=== PATIENT | male | born 1950 | race American Indian/Alaskan Native ===

== ENCOUNTER 2019-08-01 00:57 | Emergency (ER) | payer BC, OTHER ==
[2019-08-01] MEDS ORDERED: MECLIZINE HCL 12.5 MG TAB ONE (01:23)
[2019-08-01 01:42] LABS: Potassium 4.1 mmol/L (3.5-5.1)
--- NOTE | 2019-08-01 02:43 | ER ---
Nurse's Notes [facility] Name: Scott Ortiz Age: 68 yrs Sex: Male : 1950 Arrival Date: 08/01/2019 Time: 01:04 Bed 6 Private MD: Diagnosis: Vertigo Presentation: 08/01 00:58 Presenting complaint: EMS states: PT reports severe vertigo and is unable to situp or jb4 turn from side to side without falling back to a lying position. 00:58 Transition of care: patient was not received from another setting of care. Onset of jb4 symptoms was August 01, 2019. Risk Assessment: Do you want to hurt yourself or someone else? Patient reports no desire to harm self or others. Initial Sepsis Screen: Does the patient meet any 2 criteria? No. Patient's initial sepsis screen is negative. Does the patient have a suspected source of infection? No. Patient's initial sepsis screen is negative. Care prior to arrival: Glucose check: 171. 00:58 Method Of Arrival: EMS: [facility] jb4 00:58 Acuity: МАРИНА 3 jb4 Historical: - Allergies: 00:58 No Known Allergies; jb4 - Home Meds: 00:58 Benicar oral oral [Active]; Metformin Oral [Active]; insulin [Active]; Crestor 5 mg jb4 oral tab [Active]; amlodipine 5 mg tab [Active]; - PMHx: 00:58 Diabetes - IDDM; Hypertension; High Cholesterol; jb4 - PSHx: 00:58 None; jb4 - Immunization history:: Adult Immunizations up to date. - Social history:: Smoking status: Patient/guardian denies using tobacco. - Ebola Screening: : No symptoms or risks identified at this time. - Hospitalizations: : No recent hospitalization is reported. Screenin:10 Abuse screen: Denies threats or abuse. Denies injuries from another. Nutritional aa1 screening: No deficits noted. Tuberculosis screening: No symptoms or risk factors identified. Fall Risk Gait- Impaired (20 pts.). Assessment: 01:10 General: Appears in no apparent distress. comfortable, Behavior is calm, cooperative, aa1 appropriate for age. Pain: Denies pain. Neuro: Level of Consciousness is awake, alert, obeys commands, Oriented to person, place, time, situation, [place] Tier are equal bilaterally Moves all extremities. Speech is normal, Facial symmetry appears normal, Pupils are PERRLA, Intact Reports dizziness, Denies blurred vision headache diplopia. Cardiovascular: Heart tones S1 S2 present. Respiratory: Airway is patent Respiratory effort is even, unlabored, Respiratory pattern is regular, symmetrical. GI: No signs and/or symptoms were reported involving the gastrointestinal system. : No signs and/or symptoms were reported regarding the genitourinary system. EENT: No signs and/or symptoms were reported regarding the EENT system. Derm: Skin is intact, is healthy with good turgor, Skin is pink, warm \T\ dry. Musculoskeletal: Circulation, motion, and sensation intact. Capillary refill < 3 seconds. 01:38 Reassessment: Pt back from CT. aa1 02:18 Reassessment: Patient appears in no apparent distress at this time. Patient and/or jb4 family updated on plan of care and expected duration. Pain level reassessed. Patient is alert, oriented x 3, equal unlabored respirations, skin warm/dry/pink. Pt reports dizziness is unchanged by medication. Still is unable to sit up. 03:00 Reassessment: Patient appears in no apparent distress at this time. Patient and/or jb4 family updated on plan of care and expected duration. Pain level reassessed. Patient is alert, oriented x 3, equal unlabored respirations, skin warm/dry/pink. Pt and family verbalized understanding of d/c and follow up instructions. Pt assisted to vehicle via wheel chair. Vital Signs: 00:58 BP 135 / 84; Pulse 67; Resp 16; Temp 97.8(O); Pulse Ox 100% on R/A; Weight 65.77 kg jb4 (R); Height 5 ft. 6 in. (167.64 cm) (R); Pain 0/10; 02:15 BP 126 / 84; Pulse 60; Resp 16; Pulse Ox 98% on R/A; jb4 00:58 Body Mass Index 23.40 (65.77 kg, 167.64 cm) 4 ED Course: 00:58 Arm band placed on right wrist. jb4 01:04 Patient arrived in ED. rn 01:04 Jae Villalpando MD is Attending Physician. rn 01:06 Nguyễn Adames RN is Primary Nurse. jb4 01:10 Triage completed. jb4 01:10 Patient has correct armband on for positive identification. Bed in low position. Call aa1 light in reach. Side rails up X2. Pulse ox on. NIBP on. Warm blanket given. 01:20 Initial lab(s) drawn, by me, sent to lab. Inserted saline lock: 20 gauge in right aa1 antecubital area, using aseptic technique. Blood collected. 01:45 CT completed. Patient tolerated procedure well. Patient moved to CT via stretcher. Patient moved back from CT. 01:45 CT Head Brain wo Cont In Process Unspecified. EDMS 02:42 Daniel Pimentel MD is Referral Physician. rn 03:06 No provider procedures requiring assistance completed. IV discontinued, intact, ea bleeding controlled, No redness/swelling at site. Pressure dressing applied. Administered Medications: 01:29 Drug: Meclizine 50 mg Route: PO; aa1 02:00 Follow up: Response: No adverse reaction; Marked relief of symptoms jb4 Outcome: 02:42 Discharge ordered by MD. rn 03:06 Discharged to home via wheelchair, with family. ea 03:06 Condition: stable 03:06 Discharge instructions given to patient, Instructed on discharge instructions, follow up and referral plans. 03:08 Patient left the ED. jb4 Signatures: Dispatcher [employer] EDEnriqueta Beltran, RN RN aa1 Yoni Asher Jae Villalpando MD MD rn Bryson, James, RN RN jb4 Lily Steele RN RN ea
--- NOTE | 2019-08-01 02:43 | EDPHYS ---
Physician Documentation [facility] Name: Scott Ortiz Age: 68 yrs Sex: Male : 1950 Arrival Date: 08/01/2019 Time: 01:04 Bed 6 Private MD: ED Physician Jae Villalpando HPI: 08/01 01:07 This 68 yrs old Other Male presents to ER via Unassigned with complaints of dizziness, rn vertigo. 01:07 The patient presents with vertigo. Onset: The symptoms/episode began/occurred just rn prior to arrival. Modifying factors: The symptoms are alleviated by closing eyes, holding head still, lying down, the symptoms are aggravated by movement of head, changing position. Severity of symptoms: At their worst the symptoms were moderate in the emergency department the symptoms are unchanged. The patient has not experienced similar symptoms in the past. The patient has not recently seen a physician. Reports went to bed at normal time, felt fine, worked without symptoms yesterday. Woke up around 12:30 with severe dizziness with change in position and head movement. Unable to even sit up. Denies nausea/vomiting. No chest pain/abd pain/weakness or numbness of extremities. Asymptomatic if lays down or doesn't move head. . Historical: - Allergies: 00:58 No Known Allergies; jb4 - Home Meds: 00:58 Benicar oral oral [Active]; Metformin Oral [Active]; insulin [Active]; Crestor 5 mg jb4 oral tab [Active]; amlodipine 5 mg tab [Active]; - PMHx: 00:58 Diabetes - IDDM; Hypertension; High Cholesterol; jb4 - PSHx: 00:58 None; jb4 - Immunization history:: Adult Immunizations up to date. - Social history:: Smoking status: Patient/guardian denies using tobacco. - Ebola Screening: : No symptoms or risks identified at this time. - Hospitalizations: : No recent hospitalization is reported. ROS: 01:07 Constitutional: Negative for fever, chills, and weight loss, Eyes: Negative for injury, rn pain, redness, and discharge, ENT: Negative for injury, pain, and discharge, Neck: Negative for injury, pain, and swelling, Cardiovascular: Negative for chest pain, palpitations, and edema, Respiratory: Negative for shortness of breath, cough, wheezing, and pleuritic chest pain, Abdomen/GI: Negative for abdominal pain, nausea, vomiting, diarrhea, and constipation, MS/Extremity: Negative for injury and deformity, Skin: Negative for injury, rash, and discoloration, Neuro: Negative for headache, weakness, numbness, tingling, and seizure. Exam: 01:07 Constitutional: This is a well developed, well nourished patient who is awake, alert, rn and in no acute distress. Laying flat with legs and arms crossed Head/Face: Normocephalic, atraumatic. Eyes: Pupils equal round, extra-ocular motions intact. No nystagmus. ENT: MMM Cardiovascular: Regular rate and rhythm. No pulse deficits. Respiratory: Clear bilateral breath sounds. No increased work of breathing, no retractions or nasal flaring. Abdomen/GI: soft, non-tender MS/ Extremity: Pulses equal, no cyanosis. Neurovascular intact. Full, normal range of motion. Equal circumference. Neuro: Awake and alert, GCS 15, oriented. Cranial nerves grossly intact. Motor strength 5/5 in all extremities. Sensory grossly intact. Cerebellar exam normal. Gait not tested, unable to sit up without falling back. Vital Signs: 00:58 BP 135 / 84; Pulse 67; Resp 16; Temp 97.8(O); Pulse Ox 100% on R/A; Weight 65.77 kg jb4 (R); Height 5 ft. 6 in. (167.64 cm) (R); Pain 0/10; 02:15 BP 126 / 84; Pulse 60; Resp 16; Pulse Ox 98% on R/A; jb4 00:58 Body Mass Index 23.40 (65.77 kg, 167.64 cm) jb4 MDM: 01:04 Patient medically screened. rn 01:23 ED course: Pt states feels ok, just can't sit up. States no need for other tests, and rn that he recently had stress test/cardiac eval and was normal. States is ok with CT head. . 02:39 Differential diagnosis: CVA, generalized weakness, hypovolemia, idiopathic dizziness, rn TIA, vertigo. Data reviewed: vital signs, nurses notes, lab test result(s), radiologic studies, CT scan, and as a result, I will discharge patient. Counseling: I had a detailed discussion with the patient and/or guardian regarding: the historical points, exam findings, and any diagnostic results supporting the discharge/admit diagnosis, lab results, radiology results, the need for outpatient follow up, to return to the emergency department if symptoms worsen or persist or if there are any questions or concerns that arise at home. Response to treatment: the patient's symptoms have mildly improved after treatment, and as a result, I will discharge patient. ED course: Pt able to sit up a little more since arrival. CT head without acute findings. Spoke with him regarding thickening of sinuses, states has bad allergies and denies fever/sinusitis symptoms. I offered different medication to help symptoms i.e. valium and/or fluids, he declines, is convinced has labyrinthitis. Also recommended CTA head/neck. Requests to go home. States only came to get CT head and make sure nothing was wrong inside head. Family seems more concerned but patient insists to them he is ok and wants to go home.. 08/01 01:05 Order name: BMP; Complete Time: 01:45 rn 08/01 01:04 Order name: CT Head Brain wo Cont rn 08/01 01:05 Order name: IV Start; Complete Time: 01:29 rn 08/01 01:25 Order name: Monitor; Complete Time: 01:29 rn Administered Medications: :29 Drug: Meclizine 50 mg Route: PO; aa1 02:00 Follow up: Response: No adverse reaction; Marked relief of symptoms jb4 Disposition: 08/01/19 02:42 Discharged to Home. Impression: Vertigo. - Condition is Stable. - Discharge Instructions: Vertigo. - Medication Reconciliation Form, Thank You Letter, Antibiotic Education, Prescription Opioid Use form. - Follow up: Daniel Pimentel MD; When: As needed; Reason: Recheck today's complaints, Re-evaluation by your physician. - Problem is new. - Symptoms have improved. Signatures: Dispatcher [employer] EDMS Enriqueta Jj RN RN aa1 Jae Villalpando MD MD rn Bryson, James, RN RN jb4 Corrections: (The following items were deleted from the chart) 02:52 02:39 ED course: Pt able to sit up a little more since arrival. CT head without acute rn findings. Spoke with him regarding thickening of sinuses, states has bad allergies and denies fever/sinusitis symptoms. I offered different medication to help symptoms i.e. valium and/or fluids, he declines, is convinced has labyrinthitis. Requests to go home. States only came to get CT head and make sure nothing was wrong inside head. Family seems more concerned but patient insists to them he is ok and wants to go home.. rn 03:08 02:42 08/01/2019 02:42 Discharged to Home. Impression: Vertigo. Condition is Stable. jb4 Forms are Medication Reconciliation Form, Thank You Letter, Antibiotic Education, Prescription Opioid Use. Follow up: Dnaiel Pimentel; When: As needed; Reason: Recheck today's complaints, Re-evaluation by your physician. Problem is new. Symptoms have improved. rn
[2019-08-01 03:35] VITALS: TEMP 97.8
[2019-08-01 03:36] VITALS: BP 126/84; O2SAT 98
--- NOTE | 2019-08-01 11:50 | RAD REPORT ---
EXAM DESCRIPTION: CT - Head Brain Wo Cont - 08/01/2019 2:36 am CLINICAL HISTORY: Vertigo;Dizziness TECHNIQUE: Contiguous axial CT images obtained through the brain without IV contrast. Coronal and sa gittal reformatted images were provided. This exam was performed according to our departmental dose-optimization program, which includes autom ated exposure control, adjustment of the mA and/or kV according to patient size and/or use of iterati ve reconstruction technique. COMPARISON: None available for comparison FINDINGS: Brain: There is mild cerebral atrophy. No significant white matter changes. No focal mass effect. Quigley-white matter differentiation is within normal limits. No hemorrhage. Ventricles: No ventriculomegaly or midline shift. Extra-axial spaces: No extra-axial collection or hemorrhage. Paranasal sinuses and mastoid air cells: Moderate to severe right and minimal left maxillary sinus mu cosal thickening. Vessels: There is minimal atherosclerotic disease of the internal carotid arteries bilaterally. Bones: Unremarkable Soft tissues: Unremarkable IMPRESSION: 1. No acute intracranial or extra-axial abnormality. 2. Other findings as above. Electronically signed by: Gregorio Boyce MD 08/01/2019 2:18 AM [facility] Due to temporary technical issues with the PACS/Fluency reporting system, reports are being signed by the in house radiologist as a courtesy to ensure prompt reporting. The interpreting radiologist is f ully responsible for the content of the report.
== END 2019-08-01 03:08 | disposition home or self-care (01) ==
LOC: ER 00:57
DX: R42 Dizziness and giddiness (principal); I10 Essential (primary) hypertension; E11.9 Type 2 diabetes mellitus without complications; E78.00 Pure hypercholesterolemia, unspecified; Z79.4 Long term (current) use of insulin
CPT/HCPCS: 36415; 70450; 80048; 99284; J8597

== ENCOUNTER 2019-09-21 05:05 | Emergency (ER) | payer OTHER ==
[2019-09-21] MEDS ORDERED: NA CHLORIDE 0.9% 2,000 ML ONE (05:23)
[2019-09-21 05:57] LABS: ALT/SGPT 35 U/L (12-78); AST/SGOT 19 U/L (15-37); Albumin 3.8 g/dL (3.4-5.0); Alkaline Phosphatase 62 U/L (45-117); BUN Blood Urea Nitrogen 23 mg/dL (7-18); Bicarbonate 25 mmol/L (21-32); Bilirubin Total 1.1 mg/dL (0.2-1.0); Glucose Level 236 mg/dL (74-106); Lipase 128 U/L (73-393); Potassium 5.2 mmol/L (3.5-5.1); Protein, Total 7.2 g/dL (6.4-8.2); Sodium Level 139 mmol/L (136-145); Troponin (Emerg Dept Use Only) < 0.02 ng/mL (0.0-0.045)
[2019-09-21 06:08] LABS: Absolute Lymphocytes (CBC) 0.7 K/uL (0.7-4.9); Basophils % 0.1 % (0-1.3); Hematocrit 38.9 % (39.6-49.0); Lymphocytes % 7.1 % (15.3-44.8); MPV 9.3 fL (7.6-11.3); RBC Red Blood Cell Count 4.37 M/uL (4.33-5.43)
[2019-09-21] MEDS ORDERED: CIPROFLOXACIN HCL 250 MG TAB ONE (06:16)
--- NOTE | 2019-09-21 06:52 | ER ---
Nurse's Notes [facility] Name: Scott Ortiz Age: 68 yrs Sex: Male : 1950 Arrival Date: 09/21/2019 Time: 05:08 Bed 7 Private MD: Diagnosis: Diarrhea, unspecified;Weakness;Type 1 diabetes mellitus;Syncope and collapse-near;Unspecified kidney failure-renal insuffiency;Hyperkalemia Presentation: 09/21 05:00 Presenting complaint: EMS states: Pt found on the floor, reported having nausea, ea vomiting and diarrhea for the past 12 hours. EMS reported pt was feeling dizzy while sitting systolic BP was 102 and 101, while standing BP was 88/50. EMS initiated NS, pt received approx 500 mls of NS, through 20 G IV in RAC. Transition of care: patient was not received from another setting of care. Onset of symptoms was September 21, 2019. Risk Assessment: Do you want to hurt yourself or someone else? Patient reports no desire to harm self or others. Initial Sepsis Screen: Does the patient meet any 2 criteria? No. Patient's initial sepsis screen is negative. Does the patient have a suspected source of infection? No. Patient's initial sepsis screen is negative. Care prior to arrival: NS 500 cc, 20 G to RAC. 05:00 Method Of Arrival: EMS: [facility] ea 05:00 Acuity: МАРИНА 3 ea Historical: - Allergies: 05:30 No Known Allergies; ea - Home Meds: 05:30 Metformin Oral [Active]; Crestor 5 mg Oral tab [Active]; amlodipine 5 mg tab [Active]; ea Benicar Oral [Active]; - PMHx: 05:30 Hypertension; High Cholesterol; Diabetes - IDDM; ea - PSHx: 05:30 None; ea - Immunization history:: Adult Immunizations up to date. - Family history:: not pertinent. - Social history:: Smoking status: Patient/guardian denies using tobacco. - Ebola Screening: : Patient denies travel to an Ebola-affected area in the 21 days before illness onset. Screenin:18 Abuse screen: Denies threats or abuse. Nutritional screening: No deficits noted. jd3 Tuberculosis screening: No symptoms or risk factors identified. Fall Risk IV access (20 points). Ambulatory Aid- None/Bed Rest/Nurse Assist (0 pts). Gait- Normal/Bed Rest/Wheelchair (0 pts) Mental Status- Oriented to own ability (0 pts). Total Rajput Fall Scale indicates No Risk (0-24 pts). Assessment: 05:17 General: Appears in no apparent distress. comfortable, Behavior is calm, cooperative, jd3 appropriate for age. Pain: Denies pain. Neuro: Level of Consciousness is awake, alert, obeys commands, Oriented to person, place, time, situation, Denies dizziness. Cardiovascular: Denies chest pain, Capillary refill < 3 seconds Patient's skin is warm and dry. Rhythm is regular. Respiratory: Airway is patent Respiratory effort is even, unlabored, Respiratory pattern is regular, symmetrical, Denies cough, shortness of breath. GI: Abdomen is round non-distended, Bowel sounds present X 4 quads. Abd is soft and non tender X 4 quads. Reports diarrhea. : No signs and/or symptoms were reported regarding the genitourinary system. EENT: No signs and/or symptoms were reported regarding the EENT system. Derm: Skin is intact, Skin is dry, Skin is normal, Skin temperature is warm. Musculoskeletal: Circulation, motion, and sensation intact. Range of motion: intact in all extremities. 06:06 Reassessment: Patient appears in no apparent distress at this time. No changes from jd3 previously documented assessment. Patient and/or family updated on plan of care and expected duration. Pain level reassessed. Patient is alert, oriented x 3, equal unlabored respirations, skin warm/dry/pink. 07:26 Reassessment: Patient appears in no apparent distress at this time. at sg bedside for discharge instructions, pt continuing treatment as ordered prior to DC to home. Vital Signs: 05:00 BP 136 / 79; Pulse 78; Resp 18; Temp 98.5; Pulse Ox 100% ; Weight 68.04 kg; Height 5 ea ft. 3 in. (160.02 cm); 06:06 BP 140 / 78; Pulse 87; Resp 19 S; Pulse Ox 100% on R/A; Pain 0/10; jd3 07:00 BP 122 / 67; Pulse 97; Resp 22; Pulse Ox 100% ; bp 07:18 BP 138 / 77 LA Supine (auto/reg); Pulse 99; Resp 24; Pulse Ox 100% ; ms 07:18 BP 141 / 83 LA Sitting (auto/reg); Pulse 100; Resp 20; Pulse Ox 100% ; ms 07:18 BP 137 / 75 LA Standing (auto/reg); Pulse 100; Resp 20; Pulse Ox 100% ; ms 05:00 Body Mass Index 26.57 (68.04 kg, 160.02 cm) ED Course: 05:00 Patient placed in an exam room, on a stretcher, on pulse oximetry. ea 05:08 Patient arrived in ED. cl3 05:08 Quincy Danielle MD is Attending Physician. srinivas 05:16 Denver Neves, RN is Primary Nurse. jd3 05:18 Patient has correct armband on for positive identification. Placed in gown. Bed in low jd3 position. Call light in reach. Side rails up X 1. Adult w/ patient. 05:27 Triage completed. ea 05:46 Maintain EMS IV. Dressing intact. Good blood return noted. Site clean \T\ dry. Gauge \T\ erin 3 site: 20 G right AC. Administered Medications: 05:29 Drug: NS 0.9% 1000 ml Route: IV; Rate: 1 bolus; Site: right antecubital; jd3 05:29 Drug: NS 0.9% 1000 ml Route: IV; Rate: 1 bolus; Site: right antecubital; jd3 06:33 Drug: Cipro 250 mg Route: PO; jd3 07:13 Follow up: Response: No adverse reaction bp 07:27 Not Given (Other Intervention Used): NS 0.9% 1000 ml IV at 1 bolus Per protocol; 1000 sg mL bolus Outcome: 06:51 Discharge ordered by . srinivas 08:11 Patient left the ED. sg Signatures: Emil Elizabeth RN RN sg Anderson, Corey, MD MD cha Villarreal, Maria ms Lily Steele RN RN ea Davies, Jonathon, RN RN jd3 Peltier, Brian, RN RN bp Lewis, Charde cl3 Corrections: (The following items were deleted from the chart) 06:06 05:17 Neuro: Level of Consciousness is awake, alert, obeys commands, Oriented to jd3 person, place, time, situation, Reports dizziness, jd3
--- NOTE | 2019-09-21 06:53 | EDPHYS ---
Physician Documentation [facility] Name: Scott Ortiz Age: 68 yrs Sex: Male : 1950 Arrival Date: 09/21/2019 Time: 05:08 Bed 7 Private MD: ED Physician Quincy Danielle HPI: 09/21 05:15 This 68 yrs old Other Male presents to ER via Unassigned with complaints of Syncope x 2 srinivas after diarrhea. 05:15 Onset: The symptoms/episode began/occurred just prior to arrival, this morning. srinivas Associated signs and symptoms: Pertinent positives: diarrhea, near syncope. The patient has experienced near-syncope, almost passed out, felt dizzy, felt faint, felt generally weak. Associated injury: The patient did not suffer any apparent associated injury. Historical: - Allergies: 05:30 No Known Allergies; ea - Home Meds: 05:30 Metformin Oral [Active]; Crestor 5 mg Oral tab [Active]; amlodipine 5 mg tab [Active]; ea Benicar Oral [Active]; - PMHx: 05:30 Hypertension; High Cholesterol; Diabetes - IDDM; ea - PSHx: 05:30 None; ea - Immunization history:: Adult Immunizations up to date. - Family history:: not pertinent. - Social history:: Smoking status: Patient/guardian denies using tobacco. - Ebola Screening: : Patient denies travel to an Ebola-affected area in the 21 days before illness onset. ROS: 05:15 Constitutional: Negative for fever, chills, and weight loss, Eyes: Negative for injury, srinivas pain, redness, and discharge, ENT: Negative for injury, pain, and discharge, Neck: Negative for injury, pain, and swelling, Cardiovascular: Negative for chest pain, palpitations, and edema, Respiratory: Negative for shortness of breath, cough, wheezing, and pleuritic chest pain, Back: Negative for injury and pain, : Negative for injury, bleeding, discharge, and swelling, MS/Extremity: Negative for injury and deformity, Skin: Negative for injury, rash, and discoloration, Psych: Negative for depression, anxiety, suicide ideation, homicidal ideation, and hallucinations, Allergy/Immunology: Negative for hives, rash, and allergies, Endocrine: Negative for neck swelling, polydipsia, polyuria, polyphagia, and marked weight changes, Hematologic/Lymphatic: Negative for swollen nodes, abnormal bleeding, and unusual bruising. 05:15 Abdomen/GI: Positive for diarrhea. 05:15 Neuro: Positive for near syncope, weakness. Exam: 05:15 Constitutional: This is a well developed, well nourished patient who is awake, alert, srinivas and in no acute distress. Head/Face: Normocephalic, atraumatic. Eyes: Pupils equal round and reactive to light, extra-ocular motions intact. Lids and lashes normal. Conjunctiva and sclera are non-icteric and not injected. Cornea within normal limits. Periorbital areas with no swelling, redness, or edema. ENT: Nares patent. No nasal discharge, no septal abnormalities noted. Tympanic membranes are normal and external auditory canals are clear. Oropharynx with no redness, swelling, or masses, exudates, or evidence of obstruction, uvula midline. Mucous membranes moist. Neck: Trachea midline, no thyromegaly or masses palpated, and no cervical lymphadenopathy. Supple, full range of motion without nuchal rigidity, or vertebral point tenderness. No Meningismus. Chest/axilla: Normal chest wall appearance and motion. Nontender with no deformity. No lesions are appreciated. Cardiovascular: Regular rate and rhythm with a normal S1 and S2. No gallops, murmurs, or rubs. Normal PMI, no JVD. No pulse deficits. Respiratory: Lungs have equal breath sounds bilaterally, clear to auscultation and percussion. No rales, rhonchi or wheezes noted. No increased work of breathing, no retractions or nasal flaring. Back: No spinal tenderness. No costovertebral tenderness. Full range of motion. Male : Normal genitalia with no discharge or lesions. Skin: Warm, dry with normal turgor. Normal color with no rashes, no lesions, and no evidence of cellulitis. MS/ Extremity: Pulses equal, no cyanosis. Neurovascular intact. Full, normal range of motion. Psych: Awake, alert, with orientation to person, place and time. Behavior, mood, and affect are within normal limits. 05:15 Abdomen/GI: Inspection: abdomen appears normal, Bowel sounds: normal, Palpation: nontender, Liver: no appreciated palpable abnormalities, Hernia: not appreciated. Vital Signs: 05:00 BP 136 / 79; Pulse 78; Resp 18; Temp 98.5; Pulse Ox 100% ; Weight 68.04 kg; Height 5 ea ft. 3 in. (160.02 cm); 06:06 BP 140 / 78; Pulse 87; Resp 19 S; Pulse Ox 100% on R/A; Pain 0/10; jd3 07:00 BP 122 / 67; Pulse 97; Resp 22; Pulse Ox 100% ; bp 07:18 BP 138 / 77 LA Supine (auto/reg); Pulse 99; Resp 24; Pulse Ox 100% ; ms 07:18 BP 141 / 83 LA Sitting (auto/reg); Pulse 100; Resp 20; Pulse Ox 100% ; ms 07:18 BP 137 / 75 LA Standing (auto/reg); Pulse 100; Resp 20; Pulse Ox 100% ; ms 05:00 Body Mass Index 26.57 (68.04 kg, 160.02 cm) ea MDM: 05:08 Patient medically screened. [facility] 05:18 Data reviewed: vital signs, nurses notes, lab test result(s), EKG. [facility] 09/21 05:32 Order name: Comprehensive Metabolic Panel; Complete Time: 06:25 [facility] 09/21 05:32 Order name: Troponin (Emerg Dept Use Only); Complete Time: 06:25 [facility] 09/21 05:32 Order name: Lipase; Complete Time: 06:25 [facility] 09/21 05:32 Order name: CBC with Automated Diff [facility] 09/21 06:38 Order name: Stool Culture [facility] 09/21 06:38 Order name: Fecal Leukocyte Stain [facility] 09/21 06:45 Order name: Urine Dipstick--Ancillary (enter results) ar 09/21 05:14 Order name: Urine Dipstick-Ancillary (obtain specimen); Complete Time: 06:33 [facility] 09/21 05:14 Order name: EKG; Complete Time: 07:02 [facility] 09/21 05:14 Order name: EKG - Nurse/Tech; Complete Time: 05:19 [facility] 09/21 06:46 Order name: Orthostatics; Complete Time: 07:21 [facility] 09/21 06:48 Order name: PO challenge; Complete Time: 07:06 [facility] Administered Medications: 05:29 Drug: NS 0.9% 1000 ml Route: IV; Rate: 1 bolus; Site: right antecubital; jd3 05:29 Drug: NS 0.9% 1000 ml Route: IV; Rate: 1 bolus; Site: right antecubital; jd3 06:33 Drug: Cipro 250 mg Route: PO; jd3 07:13 Follow up: Response: No adverse reaction bp 07:27 Not Given (Other Intervention Used): NS 0.9% 1000 ml IV at 1 bolus Per protocol; 1000 sg mL bolus Disposition: 09/21/19 06:51 Discharged to Home. Impression: Diarrhea, unspecified, Weakness, Type 1 diabetes mellitus, Syncope and collapse - near, Unspecified kidney failure - renal insuffiency, Hyperkalemia. - Condition is Stable. - Discharge Instructions: Food Choices to Help Relieve Diarrhea, Adult, Type 1 Diabetes Mellitus, Diagnosis, Adult, Diarrhea, Adult, Hyperkalemia, Hyperkalemia, Wolb-gr-Vorx, Near-Syncope, Weakness, Fatigue, Near-Syncope, Tujs-ja-Gwlt, Diarrhea, Adult, Oyoo-wy-Tzdl, Syncope, Qilc-rb-Asmy, Weakness, Zwis-um-Dlwp, Chronic Kidney Disease, Adult, Qqua-wa-Gkob. - Prescriptions for Bentyl 20 mg Oral Tablet - take 1 tablet by ORAL route every 6 hours As needed; 20 tablet. Cipro 250 mg Oral Tablet - take 1 tablet by ORAL route every 12 hours; 14 tablet. Zofran 4 mg Oral Tablet - take 1 tablet by ORAL route every 12 hours As needed; 14 tablet. - Medication Reconciliation Form, Thank You Letter, Antibiotic Education, Prescription Opioid Use form. - Follow up: Private Physician; When: 2 - 3 days; Reason: Recheck today's complaints, Continuance of care, Re-evaluation by your physician. - Problem is new. - Symptoms have improved. Signatures: Dispatcher [employer] EDMS Emil Elizabeth RN RN sg Anderson, Corey, MD MD cha Antunez, Elena RN [place] Adhikari ea, RN RN jd3 Peltier, Brian RN bp Corrections: (The following items were deleted from the chart) 08:11 06:51 09/21/2019 06:51 Discharged to Home. Impression: Diarrhea, unspecified; Weakness; sg Type 1 diabetes mellitus; Syncope and collapse - near; Unspecified kidney failure - renal insuffiency; Hyperkalemia. Condition is Stable. Discharge Instructions: Food Choices to Help Relieve Diarrhea, Adult, Diarrhea, Adult, Near-Syncope, Weakness, Fatigue, Near-Syncope, Tzxx-or-Nqnq, Diarrhea, Adult, Ngpg-uf-Cjoq, Syncope, Orei-ld-Aygq, Weakness, Icty-vo-Issu, Type 1 Diabetes Mellitus, Diagnosis, Adult, Hyperkalemia, Hyperkalemia, Kcbc-gn-Vxxy, Chronic Kidney Disease, Adult, Kqvv-it-Mcye. Prescriptions for Bentyl 20 mg Oral Tablet - take 1 tablet by ORAL route every 6 hours As needed; 20 tablet, Cipro 250 mg Oral Tablet - take 1 tablet by ORAL route every 12 hours; 14 tablet, Zofran 4 mg Oral Tablet - take 1 tablet by ORAL route every 12 hours As needed; 14 tablet. and Forms are Medication Reconciliation Form, Thank You Letter, Antibiotic Education, Prescription Opioid Use. Follow up: Private Physician; When: 2 - 3 days; Reason: Recheck today's complaints, Continuance of care, Re-evaluation by your physician. Problem is new. Symptoms have improved. srinivas
[2019-09-21 07:14] LABS: Urine Blood TRACE (NEG); Urine Glucose 2+ (NEG); Urine Protein 1+ (NEG); Urine pH 5.5 (5.0-7.0)
[2019-09-21 08:19] VITALS: O2SAT 100
[2019-09-21 08:23] VITALS: BP 137/75
[2019-09-21 09:13] LABS: Blood Morphology Comment NOT SEEN (NOT SEEN); Platelet Estimate ADEQ; Urine White Blood Cell Casts OK
--- NOTE | 2019-09-21 13:47 | EKG ---
Test Date: 2019-09-21 Test Time: 05:20:44 Conveyor Technician: MOUNA MEASUREMENT RESULTS: Intervals: Rate: 76 PA: 166 QRSD: 98 QT: 380 QTc: 427 [place]: P: 67 PA: 166 QRS: -22 T: 84 INTERPRETIVE STATEMENTS: Normal sinus rhythm Normal ECG No previous ECG available for comparison Electronically Signed On 09-21-19 13:46:20 COMPUTER SYSTEMS ARCHITECT by Tate Mari
== END 2019-09-21 08:11 | disposition home or self-care (01) ==
LOC: ER 05:05
DX: R19.7 Diarrhea, unspecified (principal); R53.1 Weakness; N19 Unspecified kidney failure; E87.5 Hyperkalemia; E10.9 Type 1 diabetes mellitus without complications
CPT/HCPCS: 93005; 87045; 85025; 36415; 89055; 87046; 81003; 84484; 83690; 80053; 99284; J7030